=== PATIENT | female | born 1970 | race Caucasian/White ===

== ENCOUNTER 2017-08-14 08:41 | Emergency (ER) | payer BC ==
[~2017-08-14] VITALS: Ht 162.6 cm; Wt 45.8 kg
[~2017-08-14 08:41] MED LIST: CEFD300C37 PO; CLON2TAB16 PO; LACT1CAP24 PO; QUET400T6 PO
[2017-08-14] MEDS ORDERED: morphine SULFATE 10 MG/ML, 1ML IVPush PRN (09:30)
[2017-08-14] MEDS ORDERED: morphine SULFATE 10 MG/ML, 1ML ONE (09:43)
[2017-08-14] MEDS ORDERED: ONDANSETRON 2MG/ML, 2ML ONE (09:43)
[2017-08-14 09:57] LABS: HEMATOCRIT 37.1 % (34.6-47.8); HEMOGLOBIN 12.2 g/dL (11.7-16.4)
[2017-08-14] MEDS ORDERED: ONDANSETRON 2MG/ML, 2ML IVPush ONE (10:00)
[2017-08-14] MEDS ORDERED: SODIUM CHLORIDE 0.9% 1,000ML IVBOLUS ONE (10:00)
[2017-08-14 10:07] LABS: ASPARTATE AMINO TRANSFERASE 12 U/L (15-37); BLOOD UREA NITROGEN 15 mg/dL (7-18)
[2017-08-14] MEDS ORDERED: SODIUM CHLORIDE FLUSH 10ML SYR IVF ONE (10:30)
[2017-08-14 13:00] VITALS: BP 106/54
== END 2017-08-14 13:22 | disposition home or self-care (01) ==
LOC: MERGE 08:41 → ED 11:21
DX: M54.9 Dorsalgia, unspecified (principal); R11.2 Nausea with vomiting, unspecified
CPT/HCPCS: 36415; 80053; 81001; 85025; 87040; 96361; 96374; 96375; 99285; J2270; J2405; J7030

== ENCOUNTER 2018-07-19 11:15 | Emergency (ER) | payer BC ==
[~2018-07-19] VITALS: Ht 162.6 cm; Wt 66.5 kg
[2018-07-19] MEDS ORDERED: QUET300T5 PO (11:28)
[2018-07-19] MEDS ORDERED: DIAZEPAM 5 MG TABLET ONE (12:13)
[2018-07-19] MEDS ORDERED: KETOROLAC 30 MG/1 ML ONE (12:13)
[2018-07-19] MEDS ORDERED: DIAZEPAM 5 MG TABLET PO ONE (12:30)
[2018-07-19] MEDS ORDERED: KETOROLAC 30 MG/1 ML IM ONE (12:30)
[2018-07-19] MEDS ORDERED: HYDROcodone/APAP 5/325 TABLET PO ONE (13:00)
[2018-07-19] MEDS ORDERED: HYDROcodone/APAP 5/325 TABLET ONE (13:02)
[2018-07-19 13:07] VITALS: BP 100/64
== END 2018-07-19 13:48 | disposition home or self-care (01) ==
LOC: ED 13:42
DX: S39.012A Strain of muscle, fascia and tendon of lower back, initial encounter (principal); F17.200 Nicotine dependence, unspecified, uncomplicated; W10.9XXA Fall (on) (from) unspecified stairs and steps, initial encounter; Y93.89 Activity, other specified; Y99.8 Other external cause status; Y92.89 Other specified places as the place of occurrence of the external cause
CPT/HCPCS: 72110; 96372; 99284; J1885

== ENCOUNTER 2019-02-13 10:02 | Inpatient (IN) | payer BC ==
[~2019-02-13] VITALS: Ht 167.6 cm; Wt 61.7 kg
[~2019-02-13 10:02] MED LIST changes: +QUET300T5 PO; -QUET400T6 PO; +QUET400T7 PO
--- NOTE | 2019-02-13 10:18 | NUR ---
PT PRESENTS VIA [facility] BREATHING, UNRESPONSIVE TO COMMANDS. AT BEDSIDE. LAST KNOWN WELL WAS 1300 02/12/2019. O2 SATS IN THE 60S. 4L NASAL CANNULA APPLIED.
[2019-02-13] MEDS ORDERED: NALOXONE 0.4 MG/ML, 1ML ONE (10:30)
[2019-02-13] MEDS ORDERED: NALOXONE 0.4 MG/ML, 1ML IVPush ONE (10:30)
--- NOTE | 2019-02-13 10:50 | NUR ---
INSERTED FLOEY CATHETER, URINE SPECIMAN REMOVED AND WALKED TO THE LAB. URINE DRAINING, TEA COLORED. TAMPON WAS REMOVED FROM THE PT WHEN THE CATHETER WAS PLACED. PT TOLERATED PROCEDURE WELL. PT TO CT.
[2019-02-13 10:52] LABS: BASOPHILS % (AUTO) 0 % (0-1); EOSINOPHILS % (AUTO) 0 % (1-7); LYMPHOCYTES # (AUTO) 0.45 x10^3/uL (1-3.4); LYMPHOCYTES % (AUTO) 6 % (22-44); MD NO; MEAN CORPUSCULAR HGB CONC 32.7 g/dL (32.4-35.8); MEAN CORPUSCULAR VOLUME 97.8 fL (80-100); MEAN PLATELET VOLUME 8.4 fL (7.4-10.4); MONOCYTES # (AUTO) 0.97 x10^3/uL (0.2-0.8); MONOCYTES % (AUTO) 14 % (2-9); NEUTROPHILS # (AUTO) 5.59 x10^3/uL (1.8-6.8); NEUTROPHILS % (AUTO) 80 % (42-75); PLATELET COUNT 196 x10^3/uL (130-400); RED BLOOD COUNT 3.97 x10^6/uL (3.82-5.3); RED CELL DISTRIBUTION WIDTH 13.8 % (9.6-15.2)
[2019-02-13 11:02] LABS: PROTHROMBIN TIME 10.5 Seconds (9.6-11.5)
[2019-02-13 11:10] LABS: ALBUMIN 2.7 g/dL (3.4-5.0); ANION GAP 11 mmol/L (5-15); CALCIUM 8.4 mg/dL (8.5-10.1); CHLORIDE 103 mmol/L (98-107); SALICYLATE LEVEL 3.6 mg/dL (2.8-20.0)
[2019-02-13 11:13] LABS: ALANINE AMINOTRANSFERASE 67 U/L (12-78); ALKALINE PHOSPHATASE 211 U/L (45-117); BILIRUBIN,TOTAL 0.8 mg/dL (0.2-1.0); CREATININE 1.48 mg/dL (0.55-1.02); TOTAL PROTEIN 6.4 g/dL (6.4-8.2)
[2019-02-13 11:19] LABS: CULTURE INDICATED? YES; MICROSCOPIC INDICATED
[2019-02-13 11:24] LABS: AMPHETAMINE SCREEN, URINE Negative (Negative); BARBITURATE SCREEN, URINE Negative (Negative); BENZODIAZEPINE SCREEN, URINE Negative (Negative); CANNABINOID SCREEN, URINE Negative (Negative); COCAINE SCREEN, URINE Negative (Negative); METHADONE SCREEN, URINE Negative (Negative); OPIATE SCREEN, URINE Negative (Negative)
--- NOTE | 2019-02-13 12:47 | NUR ---
LAW AT BEDSIDE DURING NARCAN ADMINISTRATION, MD AWARE OF PT'S CURRENT VS. PT TO BE ADMITTED FOR FURTHER EVALUATION & ABX.
[2019-02-13] MEDS ORDERED: VANCOMYCIN PER PHARMACY MC ONE (13:00)
[2019-02-13] MEDS ORDERED: CEFTRIAXONE PMX 1GM/50ML 50 ML IVPB ONE (13:00)
[2019-02-13] MEDS ORDERED: CEFTRIAXONE PMX 1GM/50ML 50 ML ONE (13:14)
--- NOTE | 2019-02-13 13:27 | NUR ---
pt medicated per emar
--- NOTE | 2019-02-13 14:13 | NUR ---
report given to MICHAEL Mckeon
[2019-02-13] MEDS ORDERED: SODIUM CHLORIDE 0.9% 1,000ML IVBOLUS ONE (15:00)
[2019-02-13] MEDS ORDERED: VANCOMYCIN 1,400 MG in SODIUM CHLORIDE 0.9% 250 ML IV ONE (15:00)
[2019-02-13] MEDS ORDERED: NOREPINEPHRINE 4 MG in SODIUM CHLORIDE 0.9% 246 ML IV PRN (15:29)
[2019-02-13] MEDS ORDERED: KETAMINE 10 MG/ML, 20ML ONE (15:36)
[2019-02-13] MEDS ORDERED: BISACODYL 10 MG SUPP PR PRN (16:00)
[2019-02-13] MEDS ORDERED: KETAMINE 100 MG/ML, 5ML IV ONE (16:00)
[2019-02-13] MEDS ORDERED: hydrALAzine 20 MG/ML, 1ML IVPush PRN (16:00)
[2019-02-13] MEDS ORDERED: POLYETHYLENE GLYCOL 17 GM PACKET PO PRN (16:00)
[2019-02-13] MEDS: SODIUM CHLORIDE 0.9% 1,000 ML IV SCH ×2 (16:10→18:17)
--- NOTE | 2019-02-13 16:25 | NUR ---
Per , other family members have informed him that pt had been making suicidal statements. Pt has Seroquil and gabapentin at home. Pt remains mildly hypotensive with MAPs in low 60s, tachy in 100s, mid 90s RA, ETCO2 50s.
[2019-02-13 16:41] LABS: SALICYLATE LEVEL 4.7 mg/dL (2.8-20.0)
[2019-02-13 16:50] LABS: THYROID STIMULATING HORMONE 0.317 mIU/L (0.358-3.740)
[2019-02-13 17:00] LABS: TROPONIN I 0.281 ng/mL (0.000-0.045)
[2019-02-13] MEDS: AMPICILLIN/SULBACTAM 3 GM in SODIUM CHLORIDE 0.9% 100 ML IV SCH (20:39)
[2019-02-13] MEDS: ENOXAPARIN 40 MG/0.4 ML SQ SCH (20:50)
[2019-02-13] MEDS ORDERED: FLUMAZENIL 0.1 MG/1 ML, 5ML ONE (21:12)
[2019-02-13] MEDS ORDERED: FLUMAZENIL 0.1 MG/1 ML, 5ML IVPush ONE (21:30)
[2019-02-13 22:22] VITALS: BP 110/52
[2019-02-14] MEDS: AMPICILLIN/SULBACTAM 3 GM in SODIUM CHLORIDE 0.9% 100 ML IV SCH ×4 (02:35→21:47)
[2019-02-14 04:00] VITALS: BP 99/55
[2019-02-14 04:57] LABS: ANION GAP 7 mmol/L (5-15); CALCIUM 7.3 mg/dL (8.5-10.1); CHLORIDE 115 mmol/L (98-107)
[2019-02-14 04:58] LABS: MEAN CORPUSCULAR HEMOGLOBIN 31.6 pg (27.0-34.8); MEAN CORPUSCULAR HGB CONC 32.2 g/dL (32.4-35.8); MEAN CORPUSCULAR VOLUME 98.1 fL (80-100); MEAN PLATELET VOLUME 8.5 fL (7.4-10.4); PLATELET COUNT 166 x10^3/uL (130-400); RED CELL DISTRIBUTION WIDTH 14.5 % (9.6-15.2)
[2019-02-14 05:01] LABS: ALANINE AMINOTRANSFERASE 71 U/L (12-78); ALKALINE PHOSPHATASE 373 U/L (45-117); BILIRUBIN,TOTAL 0.8 mg/dL (0.2-1.0); CREATININE 0.91 mg/dL (0.55-1.02); TOTAL PROTEIN 5.5 g/dL (6.4-8.2)
[2019-02-14 05:46] LABS: MD YES
[2019-02-14 05:49] LABS: BAND#(MANUAL) 2.21 x10^3/uL; BANDS%(MANUAL) 46 % (0-7); LYMPH#(MANUAL) 0.29 x10^3/uL (1-3.4); LYMPHS% (MANUAL) 6 % (22-44); METAMYELOCYTES% (MANUAL) 2 % (0-1); MONOS#(MANUAL) 0.77 x10^3/uL (0.3-2.7); MONOS% (MANUAL) 16 % (2-9); SEG#(MANUAL) 1.44 x10^3/uL (1.8-6.8); SEGS% (MANUAL) 30 % (42-75)
[2019-02-14 05:50] LABS: <PLATELET ESTIMATE> ADEQUATE; <PLT MORPHOLOGY> NORMAL PLT MORPH; ANISOCYTOSIS 1+; POLYCHROMASIA 1+
[2019-02-14] MEDS: SODIUM CHLORIDE 0.9% 1,000 ML IV SCH (06:15)
[2019-02-14] MEDS: SENNA/DOCUSATE TABLET PO SCH (09:00)
[2019-02-14] MEDS: SODIUM CHLORIDE 0.45% 1,000 ML IV SCH ×2 (09:11→18:33)
[2019-02-14] MEDS ORDERED: NICOTINE 21 MG/24 HR PATCH.TD24 ONE (14:46)
[2019-02-14] MEDS ORDERED: ALBUTEROL/IPRATROPIUM 2.5MG/0.5MG, 3 ML ONE (15:53)
[2019-02-14] MEDS: ALBUTEROL/IPRATROPIUM 2.5MG/0.5MG, 3 ML NPPB SCH ×2 (15:58→19:23)
[2019-02-14] MEDS ORDERED: ALBUTEROL/IPRATROPIUM 2.5MG/0.5MG, 3 ML NPPB PRN (16:00)
[2019-02-14] MEDS: ENOXAPARIN 40 MG/0.4 ML SQ SCH (18:33)
[2019-02-14 20:34] LABS: CLOSTRIDIUM DIFFICILE ANTIGEN NEGATIVE; CLOSTRIDIUM DIFFICILE TOXIN NEGATIVE (Negative)
[2019-02-15 04:00] VITALS: BP 112/53
[2019-02-15] MEDS: SODIUM CHLORIDE 0.45% 1,000 ML IV SCH ×2 (04:35→16:10)
[2019-02-15] MEDS: AMPICILLIN/SULBACTAM 3 GM in SODIUM CHLORIDE 0.9% 100 ML IV SCH (04:36)
[2019-02-15 04:47] LABS: MEAN CORPUSCULAR HEMOGLOBIN 31.8 pg (27.0-34.8); MEAN CORPUSCULAR VOLUME 99.5 fL (80-100); MEAN PLATELET VOLUME 8.4 fL (7.4-10.4); PLATELET COUNT 215 x10^3/uL (130-400); RED CELL DISTRIBUTION WIDTH 15.1 % (9.6-15.2)
[2019-02-15 04:59] LABS: ANION GAP 7 mmol/L (5-15); CALCIUM 7.6 mg/dL (8.5-10.1); CHLORIDE 116 mmol/L (98-107)
[2019-02-15 05:00] LABS: CREATININE 0.75 mg/dL (0.55-1.02)
[2019-02-15 05:37] LABS: MD YES
[2019-02-15 05:39] LABS: BAND#(MANUAL) 2.67 x10^3/uL; BANDS%(MANUAL) 41 % (0-7); LYMPH#(MANUAL) 0.59 x10^3/uL (1-3.4); LYMPHS% (MANUAL) 9 % (22-44); MONOS#(MANUAL) 0.59 x10^3/uL (0.3-2.7); MONOS% (MANUAL) 9 % (2-9); SEG#(MANUAL) 2.67 x10^3/uL (1.8-6.8); SEGS% (MANUAL) 41 % (42-75)
[2019-02-15 05:40] LABS: ANISOCYTOSIS 1+; POLYCHROMASIA 1+
[2019-02-15 05:41] LABS: <PLATELET ESTIMATE> ADEQUATE; <PLT MORPHOLOGY> NORMAL PLT MORPH
[2019-02-15 05:42] LABS: PMNS WITH VACUOLES 1+; TOXIC GRAN 1+
[2019-02-15] MEDS ORDERED: LIDOCAINE-MPF 1%, 2ML ENDO PRN (08:00)
[2019-02-15] MEDS: SENNA/DOCUSATE TABLET PO SCH (09:00)
[2019-02-15] MEDS ORDERED: NICOTINE 21 MG/24 HR PATCH.TD24 TD SCH (09:00)
[2019-02-15] MEDS: PIPERACILLIN/TAZO/PMX 3.375GM 50 ML IV SCH ×3 (09:55→23:19)
[2019-02-15] MEDS: SODIUM BICARBONATE 4.0%, 5ML NPPB SCH ×3 (10:00→18:00)
[2019-02-15] MEDS ORDERED: PROPOFOL 10 MG/ML, 100ML IV ONE (10:00)
[2019-02-15] MEDS ORDERED: VECURONIUM 10 MG ONE (10:00)
[2019-02-15] MEDS ORDERED: MIDAZOLAM 1 MG/ML, 5ML ONE (10:00)
[2019-02-15] MEDS ORDERED: ETOMIDATE 20 MG/10 ML ONE (10:00)
[2019-02-15] MEDS: ALBUTEROL SULFATE 2.5 MG/3 ML NPPB SCH ×4 (10:33→22:01)
[2019-02-15] MEDS: LINEZOLID PMX 600MG/300ML 300 ML IV SCH ×2 (10:57→20:06)
[2019-02-15 11:11] LABS: FIO2 100 %
--- NOTE | 2019-02-15 11:49 | NUR ---
TF GOAL: w/ propofol: PROMOTE @ 60ml/hr off propofol: PROMOTE @ 70ml/hr
[2019-02-15] MEDS: PROPOFOL 100 ML IV PRN ×2 (13:19→17:37)
[2019-02-15] MEDS: FAMOTIDINE 20 MG/2 ML IV SCH (16:13)
[2019-02-15] MEDS: ENOXAPARIN 40 MG/0.4 ML SQ SCH (16:14)
[2019-02-16] MEDS: PROPOFOL 100 ML IV PRN ×4 (00:36→17:44)
[2019-02-16] MEDS: SODIUM CHLORIDE 0.45% 1,000 ML IV SCH (02:52)
[2019-02-16] MEDS: ALBUTEROL SULFATE 2.5 MG/3 ML NPPB SCH ×6 (03:00→23:00)
[2019-02-16 04:00] VITALS: BP 97/56
[2019-02-16 04:26] LABS: MEAN CORPUSCULAR HEMOGLOBIN 32.3 pg (27.0-34.8); MEAN CORPUSCULAR HGB CONC 33.4 g/dL (32.4-35.8); MEAN CORPUSCULAR VOLUME 96.7 fL (80-100); MEAN PLATELET VOLUME 8.1 fL (7.4-10.4); PLATELET COUNT 193 x10^3/uL (130-400); RED CELL DISTRIBUTION WIDTH 14.5 % (9.6-15.2)
[2019-02-16 04:32] LABS: ANION GAP 6 mmol/L (5-15); CALCIUM 7.4 mg/dL (8.5-10.1); CHLORIDE 112 mmol/L (98-107); CREATININE 0.58 mg/dL (0.55-1.02)
[2019-02-16] MEDS: PIPERACILLIN/TAZO/PMX 3.375GM 50 ML IV SCH ×4 (05:08→22:20)
[2019-02-16] MEDS: FAMOTIDINE 20 MG/2 ML IV SCH ×2 (05:09→17:45)
[2019-02-16 05:15] LABS: MD YES
[2019-02-16 05:22] LABS: BAND#(MANUAL) 2.42 x10^3/uL; BANDS%(MANUAL) 24 % (0-7); EOS% (MANUAL) 4 % (1-7); LYMPH#(MANUAL) 0.51 x10^3/uL (1-3.4); LYMPHS% (MANUAL) 5 % (22-44); METAMYELOCYTES% (MANUAL) 1 % (0-1); MONOS#(MANUAL) 0.51 x10^3/uL (0.3-2.7); MONOS% (MANUAL) 5 % (2-9); MYELOCYTES% (MANUAL) 1 % (0-0); SEG#(MANUAL) 6.06 x10^3/uL (1.8-6.8); SEGS% (MANUAL) 60 % (42-75)
[2019-02-16 05:23] LABS: <PLATELET ESTIMATE> ADEQUATE; <PLT MORPHOLOGY> NORMAL PLT MORPH; ANISOCYTOSIS 1+; PMNS WITH VACUOLES 1+; POLYCHROMASIA 1+; TOXIC GRAN 1+
[2019-02-16] MEDS ORDERED: POTASSIUM CHLORIDE 10% 40 MEQ/30 ML UDC PO ONE (06:30)
[2019-02-16] MEDS: LINEZOLID PMX 600MG/300ML 300 ML IV SCH ×2 (08:16→20:04)
[2019-02-16] MEDS: SENNA/DOCUSATE TABLET PO SCH (08:17)
[2019-02-16] MEDS ORDERED: SODIUM CHLORIDE 0.45% 1,000 ML IV SCH (09:00)
[2019-02-16] MEDS ORDERED: FUROSEMIDE 20 MG/2 ML IV SCH (09:30)
[2019-02-16] MEDS: LORazepam 2 MG/ML, 1ML IVPush PRN ×3 (10:07→20:05)
[2019-02-16] MEDS: POTASSIUM CHLORIDE 10% 40 MEQ/30 ML UDC PO SCH ×2 (15:06→20:05)
[2019-02-16] MEDS: POTASSIUM CHLORIDE 40 MEQ in SODIUM CHLORIDE 0.45% 1,000 ML IV SCH (15:06)
[2019-02-16] MEDS: ENOXAPARIN 40 MG/0.4 ML SQ SCH (15:58)
[2019-02-16] MEDS ORDERED: POTASSIUM CHLORIDE 10% 40 MEQ/30 ML UDC PO SCH (21:00)
[2019-02-17] MEDS: MIDAZOLAM 1 MG/ML, 2ML IVPush PRN ×3 (00:30→04:18)
[2019-02-17] MEDS: ALBUTEROL SULFATE 2.5 MG/3 ML NPPB SCH ×6 (02:13→22:18)
[2019-02-17] MEDS ORDERED: SODIUM CHLORIDE 0.9%, 500ML IVBOLUS ONE ×2 (02:30)
[2019-02-17] MEDS: LORazepam 2 MG/ML, 1ML IVPush PRN (02:48)
[2019-02-17] MEDS: PHENYLEPHRINE 20 MG in SODIUM CHLORIDE 0.9% 248 ML IV PRN ×2 (02:59→18:27)
[2019-02-17] MEDS: FAMOTIDINE 20 MG/2 ML IV SCH ×2 (04:09→16:56)
[2019-02-17] MEDS: PIPERACILLIN/TAZO/PMX 3.375GM 50 ML IV SCH ×4 (04:09→21:40)
[2019-02-17] MEDS: POTASSIUM CHLORIDE 10% 40 MEQ/30 ML UDC PO SCH ×4 (04:10→21:19)
[2019-02-17 04:49] LABS: MEAN CORPUSCULAR HEMOGLOBIN 32.4 pg (27.0-34.8); MEAN CORPUSCULAR HGB CONC 33.8 g/dL (32.4-35.8); MEAN CORPUSCULAR VOLUME 96.1 fL (80-100); PLATELET COUNT 234 x10^3/uL (130-400); RED BLOOD COUNT 3.17 x10^6/uL (3.82-5.3); RED CELL DISTRIBUTION WIDTH 14.6 % (9.6-15.2)
[2019-02-17 04:57] LABS: ANION GAP 5 mmol/L (5-15); CALCIUM 7.2 mg/dL (8.5-10.1); CHLORIDE 113 mmol/L (98-107); CREATININE 0.53 mg/dL (0.55-1.02)
[2019-02-17 05:36] LABS: MD YES
[2019-02-17 05:39] LABS: BAND#(MANUAL) 0.12 x10^3/uL; BANDS%(MANUAL) 1 % (0-7); EOS#(MANUAL) 0.24 x10^3/uL (0.0-0.4); EOS% (MANUAL) 2 % (1-7); LYMPH#(MANUAL) 0.96 x10^3/uL (1-3.4); LYMPHS% (MANUAL) 8 % (22-44); MONOS% (MANUAL) 5 % (2-9); MYELOCYTES# (MANUAL) 0.12 x10^3/uL (0-0); MYELOCYTES% (MANUAL) 1 % (0-0); SEG#(MANUAL) 9.96 x10^3/uL (1.8-6.8); SEGS% (MANUAL) 83 % (42-75)
[2019-02-17 05:40] LABS: ANISOCYTOSIS 1+; TOXIC GRAN 1+
[2019-02-17 05:41] LABS: <PLATELET ESTIMATE> ADEQUATE; <PLT MORPHOLOGY> NORMAL PLT MORPH
[2019-02-17 05:43] LABS: POLYCHROMASIA 1+
[2019-02-17] MEDS ORDERED: MAGNESIUM SULFATE PMX 2GM/50ML 50 ML IV ONE (08:30)
[2019-02-17] MEDS: SENNA/DOCUSATE TABLET PO SCH (09:00)
[2019-02-17] MEDS: QUETIAPINE 200 MG TABLET PO SCH (09:36)
[2019-02-17] MEDS: LINEZOLID PMX 600MG/300ML 300 ML IV SCH ×2 (09:36→19:34)
[2019-02-17] MEDS: POTASSIUM CHLORIDE 40 MEQ in SODIUM CHLORIDE 0.45% 1,000 ML IV SCH (11:33)
[2019-02-17] MEDS: ENOXAPARIN 40 MG/0.4 ML SQ SCH (17:00)
[2019-02-18] MEDS: ALBUTEROL SULFATE 2.5 MG/3 ML NPPB SCH ×6 (02:12→22:21)
[2019-02-18] MEDS: POTASSIUM CHLORIDE 10% 40 MEQ/30 ML UDC PO SCH ×4 (03:45→21:58)
[2019-02-18] MEDS: PIPERACILLIN/TAZO/PMX 3.375GM 50 ML IV SCH ×4 (03:45→21:58)
[2019-02-18 04:14] LABS: ANION GAP 3 mmol/L (5-15); CALCIUM 7.4 mg/dL (8.5-10.1); CHLORIDE 115 mmol/L (98-107); MEAN CORPUSCULAR HEMOGLOBIN 32.2 pg (27.0-34.8); MEAN CORPUSCULAR HGB CONC 33.3 g/dL (32.4-35.8); MEAN CORPUSCULAR VOLUME 96.6 fL (80-100); PLATELET COUNT 200 x10^3/uL (130-400); RED BLOOD COUNT 3.08 x10^6/uL (3.82-5.3); RED CELL DISTRIBUTION WIDTH 14.4 % (9.6-15.2)
[2019-02-18 04:15] LABS: CREATININE 0.42 mg/dL (0.55-1.02); TRIGLYCERIDES 234 mg/dL (50-200)
[2019-02-18 04:39] LABS: MD YES
[2019-02-18 04:40] LABS: BAND#(MANUAL) 0.83 x10^3/uL; BANDS%(MANUAL) 7 % (0-7); EOS#(MANUAL) 0.47 x10^3/uL (0.0-0.4); EOS% (MANUAL) 4 % (1-7); LYMPH#(MANUAL) 0.71 x10^3/uL (1-3.4); LYMPHS% (MANUAL) 6 % (22-44); METAMYELOCYTES# (MANUAL) 0.35 x10^3/uL (0-0); METAMYELOCYTES% (MANUAL) 3 % (0-1); MONOS#(MANUAL) 0.24 x10^3/uL (0.3-2.7); MONOS% (MANUAL) 2 % (2-9); MYELOCYTES# (MANUAL) 0.12 x10^3/uL (0-0); MYELOCYTES% (MANUAL) 1 % (0-0); SEG#(MANUAL) 9.09 x10^3/uL (1.8-6.8); SEGS% (MANUAL) 77 % (42-75)
[2019-02-18 04:41] LABS: <PLATELET ESTIMATE> ADEQUATE; <PLT MORPHOLOGY> NORMAL PLT MORPH; ANISOCYTOSIS 1+; POLYCHROMASIA 1+; TOXIC GRAN 1+
[2019-02-18] MEDS: FAMOTIDINE 20 MG/2 ML IV SCH ×2 (05:34→16:52)
[2019-02-18] MEDS: POTASSIUM CHLORIDE 40 MEQ in SODIUM CHLORIDE 0.45% 1,000 ML IV SCH (05:34)
[2019-02-18] MEDS: DEXMEDETOMIDINE 200 MCG in SODIUM CHLORIDE 0.9% 48 ML IV PRN ×3 (07:51→18:00)
[2019-02-18] MEDS: LINEZOLID PMX 600MG/300ML 300 ML IV SCH ×2 (07:57→19:41)
[2019-02-18] MEDS: SENNA/DOCUSATE TABLET PO SCH (09:00)
[2019-02-18] MEDS ORDERED: FUROSEMIDE 20 MG/2 ML IV ONE (09:30)
[2019-02-18] MEDS: QUETIAPINE 200 MG TABLET PO SCH (10:37)
[2019-02-18] MEDS ORDERED: FENTANYL PF 100 MCG/2ML IVPush PRN (14:30)
[2019-02-18] MEDS: ENOXAPARIN 40 MG/0.4 ML SQ SCH (16:53)
[2019-02-19] MEDS: DEXMEDETOMIDINE 200 MCG in SODIUM CHLORIDE 0.9% 48 ML IV PRN ×2 (00:11→06:17)
[2019-02-19] MEDS: ALBUTEROL SULFATE 2.5 MG/3 ML NPPB SCH ×2 (02:16→07:10)
[2019-02-19 04:01] LABS: MEAN CORPUSCULAR HEMOGLOBIN 32.1 pg (27.0-34.8); MEAN CORPUSCULAR HGB CONC 33.4 g/dL (32.4-35.8); MEAN PLATELET VOLUME 7.6 fL (7.4-10.4); PLATELET COUNT 204 x10^3/uL (130-400); RED BLOOD COUNT 3.24 x10^6/uL (3.82-5.3); RED CELL DISTRIBUTION WIDTH 14.6 % (9.6-15.2)
[2019-02-19 04:09] LABS: ANION GAP 5 mmol/L (5-15); CALCIUM 7.6 mg/dL (8.5-10.1); CHLORIDE 111 mmol/L (98-107); CREATININE 0.51 mg/dL (0.55-1.02)
[2019-02-19 04:21] LABS: MD YES
[2019-02-19 04:24] LABS: BAND#(MANUAL) 0.34 x10^3/uL; BANDS%(MANUAL) 3 % (0-7); EOS#(MANUAL) 0.23 x10^3/uL (0.0-0.4); EOS% (MANUAL) 2 % (1-7); LYMPH#(MANUAL) 2.83 x10^3/uL (1-3.4); LYMPHS% (MANUAL) 25 % (22-44); METAMYELOCYTES# (MANUAL) 0.23 x10^3/uL (0-0); METAMYELOCYTES% (MANUAL) 2 % (0-1); MONOS#(MANUAL) 1.36 x10^3/uL (0.3-2.7); MONOS% (MANUAL) 12 % (2-9); MYELOCYTES# (MANUAL) 0.23 x10^3/uL (0-0); MYELOCYTES% (MANUAL) 2 % (0-0); SEGS% (MANUAL) 54 % (42-75)
[2019-02-19 04:25] LABS: ANISOCYTOSIS 1+; POLYCHROMASIA 1+; TOXIC GRAN 1+
[2019-02-19 04:26] LABS: <PLATELET ESTIMATE> ADEQUATE; <PLT MORPHOLOGY> NORMAL PLT MORPH
[2019-02-19] MEDS: POTASSIUM CHLORIDE 10% 40 MEQ/30 ML UDC PO SCH ×2 (04:45→10:00)
[2019-02-19] MEDS: PIPERACILLIN/TAZO/PMX 3.375GM 50 ML IV SCH ×2 (04:47→10:04)
[2019-02-19] MEDS: FAMOTIDINE 20 MG/2 ML IV SCH (04:47)
[2019-02-19] MEDS: SENNA/DOCUSATE TABLET PO SCH (07:52)
[2019-02-19] MEDS: LINEZOLID PMX 600MG/300ML 300 ML IV SCH (08:05)
[2019-02-19] MEDS ORDERED: FUROSEMIDE 20 MG/2 ML IV ONE (09:30)
[2019-02-19 14:40] VITALS: BP 105/66
[2019-02-19] MEDS ORDERED: MAGNESIUM SULFATE PMX 2GM/50ML 50 ML IV ONE (16:30)
[2019-02-19] MEDS: ENOXAPARIN 40 MG/0.4 ML SQ SCH (16:37)
[2019-02-19] MEDS ORDERED: NICOTINE 14MG/24 HR PATCH.TD24 TD ONE (18:00)
[2019-02-19 18:52] VITALS: BP 101/61
[2019-02-20 00:56] VITALS: BP 97/58
[2019-02-20 04:44] LABS: MEAN CORPUSCULAR HGB CONC 32.6 g/dL (32.4-35.8); MEAN CORPUSCULAR VOLUME 95.2 fL (80-100); MEAN PLATELET VOLUME 7.5 fL (7.4-10.4); PLATELET COUNT 233 x10^3/uL (130-400); RED BLOOD COUNT 3.66 x10^6/uL (3.82-5.3)
[2019-02-20 04:47] LABS: ALBUMIN 1.9 g/dL (3.4-5.0); ANION GAP 7 mmol/L (5-15); CALCIUM 7.8 mg/dL (8.5-10.1); CHLORIDE 110 mmol/L (98-107)
[2019-02-20 04:51] LABS: ALANINE AMINOTRANSFERASE 57 U/L (12-78); ALKALINE PHOSPHATASE 349 U/L (45-117); BILIRUBIN,TOTAL 0.5 mg/dL (0.2-1.0); CREATININE 0.51 mg/dL (0.55-1.02); TOTAL PROTEIN 5.9 g/dL (6.4-8.2)
[2019-02-20 05:13] LABS: MD YES
[2019-02-20 05:17] LABS: BAND#(MANUAL) 1.36 x10^3/uL; BANDS%(MANUAL) 9 % (0-7); EOS#(MANUAL) 0.15 x10^3/uL (0.0-0.4); EOS% (MANUAL) 1 % (1-7); LYMPH#(MANUAL) 2.87 x10^3/uL (1-3.4); LYMPHS% (MANUAL) 19 % (22-44); METAMYELOCYTES% (MANUAL) 2 % (0-1); MONOS#(MANUAL) 0.91 x10^3/uL (0.3-2.7); MONOS% (MANUAL) 6 % (2-9); MYELOCYTES# (MANUAL) 0.15 x10^3/uL (0-0); MYELOCYTES% (MANUAL) 1 % (0-0); SEG#(MANUAL) 9.36 x10^3/uL (1.8-6.8); SEGS% (MANUAL) 62 % (42-75)
[2019-02-20 05:19] LABS: <PLATELET ESTIMATE> ADEQUATE; <PLT MORPHOLOGY> NORMAL PLT MORPH; ANISOCYTOSIS 1+; POLYCHROMASIA 1+; TOXIC GRAN 1+
[2019-02-20 07:43] VITALS: BP 103/63
[2019-02-20] MEDS: AMPICILLIN/SULBACTAM 1,500 MG in SODIUM CHLORIDE 0.9% 50 ML IV SCH ×3 (10:23→22:36)
[2019-02-20 13:32] VITALS: BP 121/76
[2019-02-20] MEDS: ONDANSETRON 2MG/ML, 2ML IVPush PRN (14:18)
[2019-02-20] MEDS: DOXYCYCLINE 100 MG in DEXTROSE 5% 250 ML IV SCH (14:20)
[2019-02-20] MEDS: ENOXAPARIN 40 MG/0.4 ML SQ SCH (17:00)
[2019-02-20 19:32] VITALS: BP 114/72
[2019-02-20] MEDS: DOXEPIN 25 MG CAPSULE PO SCH (20:27)
[2019-02-21 01:41] VITALS: BP 109/68
[2019-02-21] MEDS: DOXYCYCLINE 100 MG in DEXTROSE 5% 250 ML IV SCH ×2 (01:53→15:01)
[2019-02-21] MEDS: AMPICILLIN/SULBACTAM 1,500 MG in SODIUM CHLORIDE 0.9% 50 ML IV SCH ×3 (04:31→18:34)
[2019-02-21 04:47] LABS: MEAN CORPUSCULAR HEMOGLOBIN 32.3 pg (27.0-34.8); MEAN CORPUSCULAR HGB CONC 33.3 g/dL (32.4-35.8); MEAN CORPUSCULAR VOLUME 96.9 fL (80-100); MEAN PLATELET VOLUME 7.8 fL (7.4-10.4); PLATELET COUNT 292 x10^3/uL (130-400); RED BLOOD COUNT 3.81 x10^6/uL (3.82-5.3); RED CELL DISTRIBUTION WIDTH 13.8 % (9.6-15.2)
[2019-02-21 05:02] LABS: CALCIUM 7.8 mg/dL (8.5-10.1); CHLORIDE 112 mmol/L (98-107)
[2019-02-21 05:06] LABS: ALANINE AMINOTRANSFERASE 54 U/L (12-78); ALKALINE PHOSPHATASE 283 U/L (45-117); ANION GAP 7 mmol/L (5-15); BILIRUBIN,TOTAL 0.4 mg/dL (0.2-1.0); CREATININE 0.52 mg/dL (0.55-1.02)
[2019-02-21 05:33] LABS: MD YES
[2019-02-21 05:35] LABS: BAND#(MANUAL) 0.56 x10^3/uL; BANDS%(MANUAL) 4 % (0-7); EOS#(MANUAL) 0.28 x10^3/uL (0.0-0.4); EOS% (MANUAL) 2 % (1-7); LYMPH#(MANUAL) 3.34 x10^3/uL (1-3.4); LYMPHS% (MANUAL) 24 % (22-44); METAMYELOCYTES# (MANUAL) 0.14 x10^3/uL (0-0); METAMYELOCYTES% (MANUAL) 1 % (0-1); MONOS#(MANUAL) 0.97 x10^3/uL (0.3-2.7); MONOS% (MANUAL) 7 % (2-9); MYELOCYTES# (MANUAL) 0.14 x10^3/uL (0-0); MYELOCYTES% (MANUAL) 1 % (0-0); SEG#(MANUAL) 8.48 x10^3/uL (1.8-6.8); SEGS% (MANUAL) 61 % (42-75)
[2019-02-21 05:36] LABS: <PLATELET ESTIMATE> ADEQUATE; <PLT MORPHOLOGY> NORMAL PLT MORPH; POLYCHROMASIA 1+
[2019-02-21 07:55] VITALS: BP 112/69
[2019-02-21] MEDS: POTASSIUM CHLORIDE 20 MEQ TAB.ER.PRT PO SCH ×2 (09:22→17:46)
[2019-02-21] MEDS: ONDANSETRON 2MG/ML, 2ML IVPush PRN (09:23)
[2019-02-21 13:13] VITALS: BP 93/55
[2019-02-21] MEDS: LOPERAMIDE 1 MG/5 ML, 10ML UDC PO PRN (13:13)
[2019-02-21] MEDS: ENOXAPARIN 40 MG/0.4 ML SQ SCH (17:46)
[2019-02-21 20:02] VITALS: BP 112/70
[2019-02-21] MEDS: DOXEPIN 25 MG CAPSULE PO SCH (20:18)
[2019-02-22] MEDS: AMPICILLIN/SULBACTAM 1,500 MG in SODIUM CHLORIDE 0.9% 50 ML IV SCH ×4 (00:34→18:52)
[2019-02-22 00:55] VITALS: BP 105/67
[2019-02-22] MEDS: DOXYCYCLINE 100 MG in DEXTROSE 5% 250 ML IV SCH ×2 (02:16→14:10)
[2019-02-22 04:50] LABS: MEAN CORPUSCULAR HEMOGLOBIN 31.4 pg (27.0-34.8); MEAN CORPUSCULAR HGB CONC 32.6 g/dL (32.4-35.8); MEAN CORPUSCULAR VOLUME 96.3 fL (80-100); MEAN PLATELET VOLUME 7.5 fL (7.4-10.4); PLATELET COUNT 314 x10^3/uL (130-400); RED BLOOD COUNT 3.73 x10^6/uL (3.82-5.3); RED CELL DISTRIBUTION WIDTH 14.7 % (9.6-15.2)
[2019-02-22 05:02] LABS: CHLORIDE 114 mmol/L (98-107)
[2019-02-22 05:06] LABS: ALANINE AMINOTRANSFERASE 49 U/L (12-78); ALBUMIN 2.1 g/dL (3.4-5.0); ALKALINE PHOSPHATASE 211 U/L (45-117); ANION GAP 7 mmol/L (5-15); BILIRUBIN,TOTAL 0.3 mg/dL (0.2-1.0); TOTAL PROTEIN 5.9 g/dL (6.4-8.2)
[2019-02-22 05:41] LABS: MD YES
[2019-02-22 05:42] LABS: BAND#(MANUAL) 0.41 x10^3/uL; BANDS%(MANUAL) 3 % (0-7); EOS#(MANUAL) 0.27 x10^3/uL (0.0-0.4); EOS% (MANUAL) 2 % (1-7); MYELOCYTES# (MANUAL) 0.14 x10^3/uL (0-0); MYELOCYTES% (MANUAL) 1 % (0-0)
[2019-02-22 05:43] LABS: LYMPHS% (MANUAL) 17 % (22-44); METAMYELOCYTES# (MANUAL) 0.27 x10^3/uL (0-0); METAMYELOCYTES% (MANUAL) 2 % (0-1); MONOS#(MANUAL) 1.35 x10^3/uL (0.3-2.7); MONOS% (MANUAL) 10 % (2-9); SEG#(MANUAL) 8.78 x10^3/uL (1.8-6.8); SEGS% (MANUAL) 65 % (42-75)
[2019-02-22 05:44] LABS: POLYCHROMASIA 1+
[2019-02-22 05:45] LABS: <PLATELET ESTIMATE> ADEQUATE; <PLT MORPHOLOGY> NORMAL PLT MORPH
[2019-02-22 07:26] VITALS: BP 99/66
[2019-02-22] MEDS: ONDANSETRON 2MG/ML, 2ML IVPush PRN (12:24)
[2019-02-22 13:42] VITALS: BP 97/58
[2019-02-22] MEDS: ENOXAPARIN 40 MG/0.4 ML SQ SCH (16:31)
[2019-02-22] MEDS: LOPERAMIDE 1 MG/5 ML, 10ML UDC PO PRN (17:38)
[2019-02-22 20:14] VITALS: BP 92/60
[2019-02-22] MEDS: DOXEPIN 25 MG CAPSULE PO SCH (21:27)
[2019-02-23] VITALS (9 sets, daily range): BP systolic 84–100; BP diastolic 55–67
[2019-02-23] MEDS: AMPICILLIN/SULBACTAM 1,500 MG in SODIUM CHLORIDE 0.9% 100 ML IV SCH ×2 (00:34→06:26)
[2019-02-23] MEDS: DOXYCYCLINE 100 MG in DEXTROSE 5% 250 ML IV SCH (02:58)
[2019-02-23 05:29] LABS: BASOPHILS # (AUTO) 0.04 x10^3/uL (0-0.1); BASOPHILS % (AUTO) 0 % (0-1); EOSINOPHILS # (AUTO) 0.12 x10^3/uL (0-0.4); EOSINOPHILS % (AUTO) 1 % (1-7); LYMPHOCYTES # (AUTO) 2.66 x10^3/uL (1-3.4); LYMPHOCYTES % (AUTO) 22 % (22-44); MD NO; MEAN CORPUSCULAR HEMOGLOBIN 31.4 pg (27.0-34.8); MEAN CORPUSCULAR HGB CONC 32.4 g/dL (32.4-35.8); MEAN CORPUSCULAR VOLUME 96.7 fL (80-100); MEAN PLATELET VOLUME 7.7 fL (7.4-10.4); MONOCYTES # (AUTO) 1.02 x10^3/uL (0.2-0.8); MONOCYTES % (AUTO) 8 % (2-9); NEUTROPHILS # (AUTO) 8.47 x10^3/uL (1.8-6.8); NEUTROPHILS % (AUTO) 69 % (42-75); PLATELET COUNT 378 x10^3/uL (130-400); RED BLOOD COUNT 3.98 x10^6/uL (3.82-5.3); RED CELL DISTRIBUTION WIDTH 14.5 % (9.6-15.2)
[2019-02-23 05:34] LABS: CHLORIDE 112 mmol/L (98-107)
[2019-02-23 05:44] LABS: ALANINE AMINOTRANSFERASE 50 U/L (12-78); ALBUMIN 2.2 g/dL (3.4-5.0); ALKALINE PHOSPHATASE 179 U/L (45-117); ANION GAP 9 mmol/L (5-15); BILIRUBIN,TOTAL 0.5 mg/dL (0.2-1.0); CALCIUM 8.1 mg/dL (8.5-10.1); CREATININE 0.59 mg/dL (0.55-1.02); TOTAL PROTEIN 6.2 g/dL (6.4-8.2)
[2019-02-23] MEDS ORDERED: AMPICILLIN/SULBACTAM 1,500 MG in SODIUM CHLORIDE 0.9% 100 ML IV SCH (06:30)
[2019-02-23] MEDS: DOXYCYCLINE 100MG TABLET PO SCH ×2 (09:06→21:02)
[2019-02-23] MEDS: AMOXICILLIN/CLAV 875-125MG TABLET PO SCH ×2 (09:06→21:02)
[2019-02-23] MEDS: LOPERAMIDE 1 MG/5 ML, 10ML UDC PO PRN (11:28)
[2019-02-23] MEDS: ENOXAPARIN 40 MG/0.4 ML SQ SCH (16:37)
[2019-02-23] MEDS: SODIUM CHLORIDE 0.9% 1,000 ML IV SCH (16:37)
[2019-02-23] MEDS: DOXEPIN 25 MG CAPSULE PO SCH (21:02)
[2019-02-24] MEDS: SODIUM CHLORIDE 0.9% 1,000 ML IV SCH (01:51)
[2019-02-24 03:39] VITALS: BP 92/54
[2019-02-24 05:14] LABS: BASOPHILS # (AUTO) 0.02 x10^3/uL (0-0.1); BASOPHILS % (AUTO) 0 % (0-1); EOSINOPHILS # (AUTO) 0.05 x10^3/uL (0-0.4); EOSINOPHILS % (AUTO) 1 % (1-7); LYMPHOCYTES # (AUTO) 1.95 x10^3/uL (1-3.4); LYMPHOCYTES % (AUTO) 23 % (22-44); MD NO; MEAN CORPUSCULAR HEMOGLOBIN 31.2 pg (27.0-34.8); MEAN CORPUSCULAR HGB CONC 32.4 g/dL (32.4-35.8); MEAN CORPUSCULAR VOLUME 96.4 fL (80-100); MEAN PLATELET VOLUME 7.6 fL (7.4-10.4); MONOCYTES # (AUTO) 0.82 x10^3/uL (0.2-0.8); MONOCYTES % (AUTO) 9 % (2-9); NEUTROPHILS # (AUTO) 5.83 x10^3/uL (1.8-6.8); NEUTROPHILS % (AUTO) 67 % (42-75); PLATELET COUNT 396 x10^3/uL (130-400); RED BLOOD COUNT 3.77 x10^6/uL (3.82-5.3); RED CELL DISTRIBUTION WIDTH 14.1 % (9.6-15.2)
[2019-02-24 05:20] LABS: ANION GAP 8 mmol/L (5-15); CALCIUM 7.8 mg/dL (8.5-10.1); CHLORIDE 113 mmol/L (98-107)
[2019-02-24 07:26] VITALS: BP 89/50
[2019-02-24] MEDS: AMOXICILLIN/CLAV 875-125MG TABLET PO SCH ×2 (09:08→20:53)
[2019-02-24] MEDS: DOXYCYCLINE 100MG TABLET PO SCH ×2 (09:08→20:53)
[2019-02-24 10:10] VITALS: BP 94/50
[2019-02-24] MEDS: SODIUM CHLORIDE FLUSH 10ML SYR IVF SCH ×2 (12:00→20:53)
[2019-02-24 14:44] VITALS: BP 95/58
[2019-02-24] MEDS ORDERED: SODIUM CHLORIDE 0.9% 1,000 ML IV SCH (16:00)
[2019-02-24] MEDS: ENOXAPARIN 40 MG/0.4 ML SQ SCH (17:05)
[2019-02-24 19:55] VITALS: BP 105/66
[2019-02-24] MEDS: NICOTINE 14MG/24 HR PATCH.TD24 TD SCH (20:53)
[2019-02-24] MEDS: DOXEPIN 25 MG CAPSULE PO SCH (20:53)
[2019-02-25 00:31] VITALS: BP 97/61
[2019-02-25 07:13] VITALS: BP 114/77
[2019-02-25] MEDS: SODIUM CHLORIDE FLUSH 10ML SYR IVF SCH ×2 (09:00→20:43)
[2019-02-25] MEDS: DOXYCYCLINE 100MG TABLET PO SCH ×2 (09:33→20:42)
[2019-02-25] MEDS: AMOXICILLIN/CLAV 875-125MG TABLET PO SCH ×2 (09:33→20:41)
[2019-02-25 14:22] VITALS: BP 108/72
[2019-02-25] MEDS: ENOXAPARIN 40 MG/0.4 ML SQ SCH (16:22)
[2019-02-25 19:55] VITALS: BP 102/70
[2019-02-25] MEDS: DOXEPIN 25 MG CAPSULE PO SCH (20:42)
[2019-02-25] MEDS: NICOTINE 14MG/24 HR PATCH.TD24 TD SCH (20:42)
[2019-02-26 04:30] VITALS: BP 99/56
[2019-02-26 06:57] VITALS: BP 92/56
[2019-02-26] MEDS: AMOXICILLIN/CLAV 875-125MG TABLET PO SCH (10:52)
[2019-02-26] MEDS: DOXYCYCLINE 100MG TABLET PO SCH (10:52)
[2019-02-26] MEDS: SODIUM CHLORIDE FLUSH 10ML SYR IVF SCH (10:52)
[2019-02-26 12:45] VITALS: BP 93/60
[2019-02-26 12:47] VITALS: BP 92/60
[2019-02-26] MEDS: ENOXAPARIN 40 MG/0.4 ML SQ SCH (16:00)
[2019-02-26] MEDS ORDERED: DOXY100T PO (16:07)
[2019-02-26] MEDS ORDERED: DOXE25CA PO (16:07)
[2019-02-26] MEDS ORDERED: AMOX1TAB12 PO (16:07)
[2019-02-26] MEDS ORDERED: CLON0.5T11 PO (16:09)
== END 2019-02-26 18:35 | disposition home or self-care (01) | DRG 870 ==
LOC: ED 12:56 → EDIP 13:10 → CCU 17:39 → 3NW 02-19 13:58
PROVIDERS: ADMIT Internal Medicine; ATTEND Internal Medicine
PROC: 0T9B70Z Drainage of Bladder with Drainage Device, Via Natural or Artificial Opening (ICD-10-PCS; 2019-02-13)
PROC: 5A1955Z Respiratory Ventilation, Greater than 96 Consecutive Hours (ICD-10-PCS; 2019-02-15)
PROC: 0BH17EZ Insertion of Endotracheal Airway into Trachea, Via Natural or Artificial Opening (ICD-10-PCS; 2019-02-15)
PROC: 0B9J8ZX Drainage of Left Lower Lung Lobe, Via Natural or Artificial Opening Endoscopic, Diagnostic (ICD-10-PCS; 2019-02-15)
PROC: 02HV33Z Insertion of Infusion Device into Superior Vena Cava, Percutaneous Approach (ICD-10-PCS; principal; 2019-02-17)
PROC: B548ZZA Ultrasonography of Superior Vena Cava, Guidance (ICD-10-PCS; 2019-02-17)
DX: A41.9 Sepsis, unspecified organism (principal); G92 Toxic encephalopathy; J18.1 Lobar pneumonia, unspecified organism; J96.01 Acute respiratory failure with hypoxia; N17.0 Acute kidney failure with tubular necrosis; E87.2 Acidosis; J81.1 Chronic pulmonary edema; Q61.5 Medullary cystic kidney; Z99.11 Dependence on respirator [ventilator] status; D63.8 Anemia in other chronic diseases classified elsewhere; E83.42 Hypomagnesemia; E87.6 Hypokalemia; F17.210 Nicotine dependence, cigarettes, uncomplicated; F32.9 Major depressive disorder, single episode, unspecified; F41.9 Anxiety disorder, unspecified; G40.409 Other generalized epilepsy and epileptic syndromes, not intractable, without status epilepticus; I95.2 Hypotension due to drugs; R65.20 Severe sepsis without septic shock; T50.2X5A Adverse effect of carbonic-anhydrase inhibitors, benzothiadiazides and other diuretics, initial encounter; T50.902A Poisoning by unspecified drugs, medicaments and biological substances, intentional self-harm, initial encounter; Z98.891 History of uterine scar from previous surgery; Z56.0 Unemployment, unspecified; Z88.8 Allergy status to other drugs, medicaments and biological substances
CPT/HCPCS: 36415; 36600; 74018; 84145; 99285; J3490; J7613; J7620; 31624; 36573; 70450; 71045; 80048; 80053; 80307; 81001; 82140; 82533; 82803; 83605; 83690; 83735; 84100; 84443; 84478; 84484; 85025; 85610; 85730; 87040; 87070; 87081; 87086; 87205; 87324; 93005; 94002; 94003; 94640; G0378; J0295; J0696; J1650; J2020; J2250; J2310; J2405; J2543; J2704; J3370; J3480; J7060; C1751; J1940; J2060; J2370; J3475; J7030; J7040; J7050

== ENCOUNTER 2020-06-20 15:50 | Emergency (ER) | payer BC ==
[~2020-06-20] VITALS: Ht 160 cm; Wt 70.0 kg
[~2020-06-20 15:50] MED LIST changes: +AMOX1TAB12 PO; +CLON-364 PO; +DOXE25CA PO; +DOXY100T PO
--- NOTE | 2020-06-20 16:27 | NUR ---
THIS IS A 49 YO F BIB EMS W/ C/O WITNESSED SYNCOPAL EPISODE. PT REPORTS THAT THIS HAPPENS OFTEN. PT REPORTS STILL FEELING DIZZY/SHAKEY. PTS VSS, RESP EVEN AND UNLABORED, NADN. PT RESTING ON [place] W/ CALL LIGHT IN REACH, SIDE RAILS UPX2. DENIES FURTHER NEEDS AT THIS TIME.
--- NOTE | 2020-06-20 16:30 | NUR ---
SUNDEEP DUPONT AT BEDSIDE FOR ED EVAL.
[2020-06-20] MEDS ORDERED: SODIUM CHLORIDE FLUSH 10ML SYR IVF ONE (17:00)
[2020-06-20] MEDS ORDERED: SODIUM CHLORIDE 0.9% 1,000ML IVBOLUS ONE (17:00)
[2020-06-20 17:53] LABS: BASOPHILS % (AUTO) 0 % (0-1); EOSINOPHILS % (AUTO) 1 % (1-7); LYMPHOCYTES % (AUTO) 21 % (22-44); MEAN CORPUSCULAR HGB CONC 33.1 g/dL (32.4-35.8); MEAN PLATELET VOLUME 8.9 fL (7.4-10.4); MONOCYTES % (AUTO) 9 % (2-9); NEUTROPHILS % (AUTO) 69 % (42-75); PLATELET COUNT 212 x10^3/uL (130-400); RED BLOOD COUNT 4.31 x10^6/uL (3.82-5.3); RED CELL DISTRIBUTION WIDTH 14.7 % (9.6-15.2)
[2020-06-20 17:55] LABS: MD NO
[2020-06-20 18:07] LABS: ANION GAP 6 mmol/L (5-15); CALCIUM 7.8 mg/dL (8.5-10.1); CHLORIDE 105 mmol/L (98-107)
[2020-06-20 18:12] LABS: CREATININE 0.99 mg/dL (0.55-1.02)
[2020-06-20 18:13] LABS: ALANINE AMINOTRANSFERASE 11 U/L (12-78); ALKALINE PHOSPHATASE 67 U/L (45-117); BILIRUBIN,TOTAL 0.3 mg/dL (0.2-1.0); TOTAL PROTEIN 6.4 g/dL (6.4-8.2)
--- NOTE | 2020-06-20 18:51 | NUR ---
REPORT GIVEN TO FIDELIA RODRIGUEZ. PT RESTING ON GURNEY W/ CALL LIGHT IN REACH AND FAMILY AT BEDSIDE, RESP EVEN AND UNLABORED, BRYCEN. ALL TESTS RESULTED, PT IS UP FOR RECHECK AT THIS TIME.
--- NOTE | 2020-06-20 19:06 | NUR ---
RECEIVED REPORT, ASSUMED CARE OF A 49 YEAR OLD FEMALE TO ED S/P SYNCOPE. MOST LABS HAVE RESULTED, AND CURRENTLY AWAITING DISPO. SHE HAS NO COMPLAINTS OR REQUEST AT THIS TIME.
[2020-06-20 20:41] VITALS: BP 110/72
== END 2020-06-20 20:44 | disposition home or self-care (01) ==
LOC: ED 16:32
DX: R55 Syncope and collapse (principal); R06.00 Dyspnea, unspecified; I51.7 Cardiomegaly; R11.0 Nausea; R42 Dizziness and giddiness; F17.210 Nicotine dependence, cigarettes, uncomplicated
CPT/HCPCS: 36415; 71045; 80053; 83880; 85025; 93005; 99285; 99406; J7030